=== PATIENT | male | born 1990 | race American Indian/Alaskan Native ===

== ENCOUNTER 2020-10-27 10:03 | Emergency (ER) | payer SELFPAY ==
[2020-10-27 10:49] LABS: Basophils % (Auto) 0.9 % (0.0-1.8); Eosinophils # (Auto) 0.1 K/mm3 (0.0-0.4); Eosinophils % (Auto) 2.4 % (0.0-4.3); Hematocrit 42.6 % (35.5-45.6); Hemoglobin 14.5 gm/dl (11.8-15.2); Lymphocytes # (Auto) 1.7 K/mm3 (1.2-5.4); Lymphocytes % (Auto) 29.6 % (13.4-35.0); Mean Corpuscular HGB Conc 34 % (32-34); Mean Corpuscular Volume 93 fl (84-94); Monocytes # (Auto) 0.5 K/mm3 (0.0-0.8); Monocytes % (Auto) 8.4 % (0.0-7.3); Platelet Count 294 K/mm3 (140-440); Red Blood Count 4.61 M/mm3 (3.65-5.03)
[2020-10-27 10:56] LABS: Alanine Aminotransferase 12 units/L (7-56); Albumin 3.8 g/dL (3.9-5); BUN/Creatinine Ratio 14; Blood Urea Nitrogen 13 mg/dL (9-20); Calcium 9.6 mg/dL (8.4-10.2); Hemolysis Index 11
[2020-10-27 11:43] LABS: Bilirubin,Urine NEG (Negative); Blood,Urine NEG (Negative); Color,Urine Yellow (Yellow); Mucus,Urine FEW /HPF; Urobilinogen,Urine < 2.0 mg/dL (<2.0)
[2020-10-27] MEDS ORDERED: IBUPROFEN 800 MG TAB PO ONE (12:52)
[2020-10-27] MEDS ORDERED: traMADol 50 MG TAB PO ONE (12:52)
--- NOTE | 2020-10-27 14:09 | Ultrasound Report ---
Testicular ultrasound INDICATION: Pain FINDINGS: Right testicle measures 4.4 x 2.2 x 2.4 cm. Normal echotexture. Left testicle measures 4.6 x 1.7 x 2.4 cm. Right epididymal cyst measures 4 x 5 x 4 mm. Normal color Doppler flow. IMPRESSION: Right epididymal cyst. No other acute findings. Signer Name: Elmo Rausch MD Signed: 10/27/2020 2:04 PM Workstation Name: [id number]
[2020-10-27] MEDS ORDERED: AZITHROMYCIN 250 MG TAB PO ONE (14:23)
[2020-10-27] MEDS ORDERED: LIDOCAINE-MPF (1%) 10 MG/1 ML VIAL 5 ML INFILTRATI ONE (14:23)
--- NOTE | 2020-10-27 14:30 | Emergency Department Report ---
ED Male HPI - General Chief complaint: Abdominal Pain Stated complaint: CHEST PAIN/ABDOMINAL PAIN/IRRITATION W/URINATION Time Seen by Provider: 10/27/20 12:23 Source: patient Mode of arrival: Ambulatory Limitations: No Limitations - History of Present Illness Initial comments: Patient is a 29-year-old F [place] male with no significant past medical history who is presenting with some suprapubic discomfort over the last 2 to 3 days. States today has developed some dysuria as well. Denies any penile discharge. States he does have some mild tenderness to his right testicle as well. Patient is unsure if he has had exposure to anyone with an STD. Denies fevers chills nausea vomiting diarrhea at this time. Suprapubic pain is estimated at 5 out of 10 in severity. - Related Data Previous Rx's Medication Instructions Recorded Last Taken Type Ciprofloxacin HCl 500 mg PO BID #14 tablet 10/27/20 Unknown Rx Ketorolac [Toradol] 10 mg PO Q6H PRN #12 tablet 10/27/20 Unknown Rx Allergies Allergy/AdvReac Type Severity Reaction Status Date / Time No Known Allergies Allergy Unverified 10/27/20 10:11 ED Review of Systems ROS: Stated complaint: CHEST PAIN/ABDOMINAL PAIN/IRRITATION W/URINATION Other details as noted in HPI Comment: All other systems reviewed and negative ED Past Medical Hx - Past Medical History Previous Medical History?: No - Surgical History Hx Appendectomy: Yes - Social History Smoking Status: Never Smoker Substance Use Type: None - Medications Home Medications: Home Medications Medication Instructions Recorded Confirmed Last Taken Type Ciprofloxacin HCl 500 mg PO BID #14 tablet 10/27/20 Unknown Rx Ketorolac [Toradol] 10 mg PO Q6H PRN #12 tablet 10/27/20 Unknown Rx ED Physical Exam - General Limitations: No Limitations General appearance: alert, in no apparent distress - Head Head exam: Present: atraumatic, normocephalic - Eye Eye exam: Present: normal appearance - ENT ENT exam: Present: mucous membranes moist - Neck Neck exam: Present: normal inspection - Respiratory Respiratory exam: Present: normal lung sounds bilaterally. Absent: respiratory distress, wheezes, rales, rhonchi - Cardiovascular Cardiovascular Exam: Present: regular rate, normal rhythm. Absent: systolic murmur, diastolic murmur, rubs, gallop - GI/Abdominal GI/Abdominal exam: Present: soft, normal bowel sounds. Absent: distended, tenderness, guarding - Rectal Rectal exam: Present: deferred - exam: Present: normal inspection, testicular tenderness (mild right sided) - Extremities Exam Extremities exam: Present: normal inspection - Back Exam Back exam: Present: normal inspection - Neurological Exam Neurological exam: Present: alert, oriented X3 - Psychiatric Psychiatric exam: Present: normal affect, normal mood - Skin Skin exam: Present: warm, dry, intact, normal color. Absent: rash ED Medical Decision Making - Lab Data Result diagrams: 10/27/20 10:22 10/27/20 10:22 Lab Results 10/27/20 10/27/20 10/27/20 Range/Units 10:22 10:22 Unknown WBC 5.7 (4.5-11.0) K/mm3 RBC 4.61 (3.65-5.03) M/mm3 Hgb 14.5 (11.8-15.2) gm/dl Hct 42.6 (35.5-45.6) % MCV 93 (84-94) fl MCH 32 (28-32) pg MCHC 34 (32-34) % RDW 13.0 L (13.2-15.2) % Plt Count 294 (140-440) K/mm3 Lymph % (Auto) 29.6 (13.4-35.0) % Butts % (Auto) 8.4 H (0.0-7.3) % Eos % (Auto) 2.4 (0.0-4.3) % Baso % (Auto) 0.9 (0.0-1.8) % Lymph # (Auto) 1.7 (1.2-5.4) K/mm3 Butts # (Auto) 0.5 (0.0-0.8) K/mm3 Eos # (Auto) 0.1 (0.0-0.4) K/mm3 Baso # (Auto) 0.0 (0.0-0.1) K/mm3 Seg Neutrophils % 58.7 (40.0-70.0) % Seg Neutrophils # 3.3 (1.8-7.7) K/mm3 Sodium 142 (137-145) mmol/L Potassium 4.0 (3.6-5.0) mmol/L Chloride 106.1 (98-107) mmol/L Carbon Dioxide 27 (22-30) mmol/L Anion Gap 13 mmol/L BUN 13 (9-20) mg/dL Creatinine 0.9 (0.8-1.3) mg/dL Estimated GFR > 60 ml/min BUN/Creatinine Ratio 14 % Glucose 88 (75-100) mg/dL Calcium 9.6 (8.4-10.2) mg/dL Total Bilirubin 0.20 (0.1-1.2) mg/dL AST 21 (5-40) units/L ALT 12 (7-56) units/L Alkaline Phosphatase 71 (35-129) units/L Total Protein 6.5 (6.3-8.2) g/dL Albumin 3.8 L (3.9-5) g/dL Albumin/Globulin Ratio 1.4 % Urine Color Yellow (Yellow) Urine Turbidity Slightly-cloudy (Clear) Urine pH 7.0 (5.0-7.0) Ur Specific [place] 1.019 (1.003-1.030) Urine Protein 30 mg/dl (Negative) mg/dL Urine Glucose (UA) Neg (Negative) mg/dL Urine Ketones Neg (Negative) mg/dL Urine Blood Neg (Negative) Urine Nitrite Neg (Negative) Urine Bilirubin Neg (Negative) Urine Urobilinogen < 2.0 (<2.0) mg/dL Ur Leukocyte Esterase Mod (Negative) Urine WBC (Auto) 138.0 H (0.0-6.0) /HPF Urine RBC (Auto) 7.0 (0.0-6.0) /HPF Urine Mucus Few /HPF - Radiology Data [facility] [address] [place] [address] Ultrasound Report Signed Patient: KORI REYNOSO MR#: [id number] : 1990 Acct:[id number] Age/Sex: 29 / M ADM Date: 10/27/20 Loc: ED Attending Dr: Ordering Physician: OANH HUGGINS MD Date of Service: 10/27/20 Procedure(s): US testicular doppler comp Accession Number(s): [id number] cc: OANH HUGGINS MD Testicular ultrasound INDICATION: Pain FINDINGS: Right testicle measures 4.4 x 2.2 x 2.4 cm. Normal echotexture. Left testicle measures 4.6 x 1.7 x 2.4 cm. Right epididymal cyst measures 4 x 5 x 4 mm. Normal color Doppler flow. IMPRESSION: Right epididymal cyst. No other acute findings. Signer Name: Elmo Rausch MD Signed: 10/27/2020 2:04 PM Workstation Name: [id number] - Medical Decision Making Patient with a significant amount of WBCs in the urine. Patient will be covered for epididymitis. There is a small epididymal cyst present he does have some tenderness on palpation. Given Rocephin and azithromycin the patient also be started on Cipro for home. Patient stable for discharge. Critical care attestation.: If time is entered above; I have spent that time in minutes in the direct care of this critically ill patient, excluding procedure time. ED Disposition Clinical Impression: Acute cystitis, Cyst, epididymis Disposition: - TO HOME OR SELFCARE Is pt being admited?: No Does the pt Need Aspirin: No Condition: Stable Instructions: Urinary Tract Infection, Adult Referrals: [facility]IMARY [facility] [Primary Care Provider] - 3-5 Days Time of Disposition: 14:29
--- NOTE | 2020-10-28 14:29 | Electrocardiograph Report ---
[facility] Test Date: 2020-10-27 Test Time: 10:19:26 Pat Name: KORI REYNOSO Department: Room: Gender: M Soft Boarder: ASHLEY : 1990 Requested By: OANH HUGGINS Order Number: [id number] Reading MD: Gary Aguirre Measurements Intervals [place] Rate: 68 P: 64 WI: 180 QRS: 70 QRSD: 87 T: 39 QT: 383 QTc: 408 Interpretive Statements Sinus rhythm Probable left atrial enlargement ST elev, probable normal early repol pattern No previous ECG available for comparison Electronically Signed On 10-28-2020 14:29:28 EDT by Gary Aguirre
== END 2020-10-27 15:00 | disposition home or self-care (01) ==
LOC: ED 10:03
DX: N30.00 Acute cystitis without hematuria (principal); N50.3 Cyst of epididymis; Z90.49 Acquired absence of other specified parts of digestive tract; Z98.890 Other specified postprocedural states
CPT/HCPCS: 36415; 80053; 81001; 85025; 93005; 93975; 96372; 99284; J0696

== ENCOUNTER 2020-12-22 16:09 | Emergency (ER) | payer SELFPAY ==
[2020-12-22 16:24] VITALS: BP 131/87
--- NOTE | 2020-12-22 16:45 | Emergency Department Report ---
ED Fever HPI - General Chief Complaint: Fever Stated Complaint: COVID SYMPTOMS, CHILLS FEVER BODY ACHES PUI?: Yes Time Seen by Provider: 12/22/20 16:35 Source: patient - History of Present Illness Initial Comments: The patient was evaluated in the emergency department for symptoms described in the history of present illness. He/she was evaluated in the context of the global COVID-19 pandemic, which necessitated consideration that the patient might be at risk for infection with the virus that causes COVID-19. Institutional protocols and algorithms that pertain to the evaluation of patients at risk for COVID-19 are in a state of rapid change based on information released by regulatory bodies including the CDC and federal and state organizations. These policies and algorithms were followed during the patient's care in the emergency department. Please note that these policies, procedures and recommendations changed on a rapid basis. 30-year-old -[place] male who is unvaccinated presents to the emergency room complaining of body aches fever chills sore throat and headache x1 day. Patient has not taken anything for symptoms. Denies any past medical history has no known drug allergies and is currently taking no medications. Fever Severity/Quality: greater than 100.5 F Associated Symptoms: headache, muscle aches ED Review of Systems ROS: Stated complaint: COVID SYMPTOMS, CHILLS FEVER BODY ACHES Other details as noted in HPI Comment: All other systems reviewed and negative ED Past Medical Hx - Past Medical History Previous Medical History?: No - Surgical History Past Surgical History?: Yes Hx Appendectomy: Yes - Social History Smoking Status: Never Smoker Substance Use Type: None - Medications Home Medications: Home Medications Medication Instructions Recorded Confirmed Last Taken Type Ciprofloxacin HCl 500 mg PO BID #14 tablet 10/27/20 Unknown Rx Ketorolac [Toradol] 10 mg PO Q6H PRN #12 tablet 10/27/20 Unknown Rx ED Physical Exam - General Limitations: No Limitations General appearance: alert, in no apparent distress - Head Head exam: Present: atraumatic, normocephalic - Eye Eye exam: Present: normal appearance - ENT ENT exam: Present: mucous membranes moist - Neck Neck exam: Present: normal inspection - Respiratory Respiratory exam: Present: normal lung sounds bilaterally. Absent: respiratory distress - Cardiovascular Cardiovascular Exam: Present: regular rate, normal rhythm. Absent: systolic murmur, diastolic murmur, rubs, gallop - GI/Abdominal GI/Abdominal exam: Present: soft, normal bowel sounds - Rectal Rectal exam: Present: deferred - Extremities Exam Extremities exam: Present: normal inspection - Back Exam Back exam: Present: normal inspection - Neurological Exam Neurological exam: Present: alert, oriented X3 - Psychiatric Psychiatric exam: Present: normal affect, normal mood - Skin Skin exam: Present: warm, dry, intact, normal color. Absent: rash ED Course Vital Signs 12/22/20 16:22 Temperature 101.7 F H Pulse Rate 76 Respiratory 16 Rate Blood Pressure 131/87 [Left] O2 Sat by Pulse 98 Oximetry ED Medical Decision Making - Medical Decision Making 30-year-old -[place] male who is unvaccinated presents to the emergency room complaining of body aches fever chills sore throat and headache x1 day. P atjessica has not taken anything for symptoms. Denies any past medical history has no known drug allergies and is currently taking no medications. Patient has an elevated temperature of 101 during triage. Other vital signs are stable. Patient denies any shortness of breath or chest pain. Patient will be discharged home with conservative measures of ibuprofen Tylenol and to get a Covid test and quarantine for the next 10 days. Encourage patient to get vaccinated after he has a negative Covid test. Critical care attestation.: If time is entered above; I have spent that time in minutes in the direct care of this critically ill patient, excluding procedure time. ED Disposition Clinical Impression: Suspected 2019 novel coronavirus infection Disposition: HOME / SELF CARE / HOMELESS Is pt being admited?: No Does the pt Need Aspirin: No Condition: Stable Instructions: Prevent the Spread of COVID-19 if You Are Sick - CDC, COVID-19: How to Protect Yourself and Others - CDC, COVID-19 Frequently Asked Questions Additional Instructions: Your symptoms appear most consistent with a nonspecific viral syndrome. However, given this current pandemic, COVID-19 is in the differential of possibilities. I do recommend outpatient Covid 19 testing. In the meantime, isolate/quarantine yourself and stay away from anyone who is elderly, immunocompromised or chronically ill. You can use ibuprofen every 6-8 hours and Tylenol every 4-8 hours, using the dosing on the back of the bottle, as needed for any fever or body aches. Return to the emergency department with any wo rsening of your symptoms, development of chest pain or shortness of breath, or with any acute distress. Referrals: [facility] [Provider Group] - 3-5 Days Forms: Work/School Release Form(ED) Time of Disposition: 16:46
== END 2020-12-22 17:02 | disposition home or self-care (01) ==
LOC: ED 16:09
DX: M79.18 Myalgia, other site (principal); R50.9 Fever, unspecified; J02.9 Acute pharyngitis, unspecified
CPT/HCPCS: 99281